=== PATIENT | male | born 2000 | race Caucasian/White ===

== ENCOUNTER 2022-09-27 12:54 | Emergency (ER) | payer BC, OTHER ==
[2022-09-27 14:37] LABS: POTASSIUM,K 4.2 mmol/L (3.5-5.1)
== END 2022-09-27 16:07 | disposition home or self-care (01) ==
LOC: MW.ED 12:54
DX: F41.9 Anxiety disorder, unspecified (principal); Z88.2 Allergy status to sulfonamides; Z20.822 Contact with and (suspected) exposure to COVID-19
CPT/HCPCS: 36415; 70450; 70450-26; 80053; 83735; 85025; 93005; 99284; U0002

== ENCOUNTER 2025-01-20 19:45 | Emergency (ER) | payer BC, OTHER | END 2025-01-20 20:47 | disposition home or self-care (01) | LOC: MW.ED 19:45 | DX: K64.9 Unspecified hemorrhoids (principal); Z88.2 Allergy status to sulfonamides; Z79.899 Other long term (current) drug therapy | CPT/HCPCS: 99283 ==